=== PATIENT | male | born 1970 ===

== ENCOUNTER 2018-10-19 09:22 | Inpatient (IN) | payer MEDICAID, OTHER ==
--- NOTE | 2018-10-19 10:40 | ED PDOC ---
HPI: SOB/CHF/COPD Time Seen by Provider: 10/19/18 09:48 Chief Complaint (Nursing): Shortness Of Breath Chief Complaint (Provider): Shortness Of Breath History Per: Patient History/Exam Limitations: no limitations Additional Complaint(s): 48 y./o male presents to the ED complaining of unable to breathe through his nose and shortness of breath. Patient states he had shortness of breath for 5 years now and it is getting worse. He admits of never getting evaluated before and reports the tone of his voice has been changing for the last 5 years.. 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 Patient denies cough, fever, or any chest pain. [facility] #[id number] PMD: none provided Past Medical History Reviewed: Historical Data, Nursing Documentation, Vital Signs Vital Signs: Last Vital Signs Temp 98.2 F 10/19/18 09:34 Pulse 94 H 10/19/18 09:34 Resp 16 10/19/18 09:34 BP 113/74 10/19/18 09:34 Pulse Ox 99 10/19/18 09:34 Primary Care Provider: FAMILY PROVIDER,NO - Medical History PMH: No Chronic Diseases - Surgical History Surgical History: No Surg Hx - Family History Family History: States: Unknown Family Hx - Social History Current smoker - smoking cessation education provided: No Ex-Smoker (has not smoked in the last 12 months): Yes (Quit smoking 15 years ago) - Allergies Allergies/Adverse Reactions: Allergies Allergy/AdvReac Type Severity Reaction Status Date / Time No Known Allergies Allergy Verified 10/19/18 09:48 Review of Systems ROS Statement: Except As Marked, All Systems Reviewed And Found Negative Constitutional: Negative for: Fever Cardiovascular: Negative for: Chest Pain Respiratory: Positive for: Shortness of Breath. Negative for: Cough Physical Exam - Reviewed Nursing Documentation Reviewed: Yes Vital Signs Reviewed: Yes - Physical Exam Appears: Positive for: Well, Non-toxic, No Acute Distress Head Exam: Positive for: ATRAUMATIC, NORMAL INSPECTION, NORMOCEPHALIC Skin: Positive for: Normal Color, Warm, Dry Eye Exam: Positive for: EOMI, Normal appearance, PERRL ENT: Positive for: Normal ENT Inspection, Pharynx Is (Left posterior superficial blisters. Uvula midline.), Other (Horse voice. No drooling.). Negative for: Tonsillar Exudate, Tonsillar Swelling Neck: Positive for: Normal, Painless ROM, Supple Cardiovascular/Chest: Positive for: Regular Rate, Rhythm. Negative for: Murmur Respiratory: Positive for: Normal Breath Sounds. Negative for: Wheezing Gastrointestinal/Abdominal: Positive for: Normal Exam, Soft. Negative for: Tenderness Back: Positive for: Normal Inspection. Negative for: L CVA Tenderness, R CVA Tenderness Extremity: Positive for: Normal ROM Neurological/Psych: Positive for: Awake, Alert, Normal Tone, Oriented (x3). Ne gative for: Motor/Sensory Deficits - Laboratory Results Result Diagrams: 10/19/18 10:55 10/19/18 10:55 - ECG O2 Sat by Pulse Oximetry: 99 Medical Decision Making Medical Decision Making: Time:1014 Impression: Shortness of breath Plan: -CT -EKG -B-type -CMP -CBC -PTT -Prothrobime -Chest x-ray -Urinalysis Accession No. : [id number] Patient Name / ID : MAGALI PEPE / [id number] Exam Date : 10/19/2018 11:00:16 ( Approved ) Study Comment : Sex / Age : M / 48Y Creator : Raffaele Lamb MD Dictator : Raffaele Lamb MD Labor Relations Teacher : Fruit Rancher : Raffaele Lamb MD Approver2 : Report Date : 10/19/2018 12:26:54 My Comment : Date of service: 10/19/2018 PROCEDURE: CT NECK WITHOUT CONTRAST HISTORY: SOB, hoarse voice COMPARISON: None available. TECHNIQUE: CT of the neck without intravenous contrast. Coronal and sagittal reformats generated. Radiation dose: Total exam DLP = 260.39 mGy-cm. This CT exam was performed using one or more of the following dose reduction techniques: Automated exposure control, adjustment of the mA and/or kV according to patient size, and/or use of iterative reconstruction technique. FINDINGS: Please note that the examination is limited by the absence of intravenous contrast. NASOPHARYNX: Unremarkable. SUPRAHYOID NECK: Unremarkable INFRAHYOID NECK: Just inferior to the larynx there is asymmetric soft tissue thickening along the right side associated with some small bubbles of gas. This could represent mucou s secretion but the possibility of a neoplastic process must be considered. There is coarse sclerotic calcification along the right lateral aspect of this soft tissue thickening. Likely this reflects a chronic process. Evaluation with direct visualization is advised. The larynx itself is normal in appearance. Please note that there is additionally some sclerotic calcification for anteriorly in the supraglottic space. Uncertain significance. MASS: None. GLANDS: Parotid and submandibular glands unremarkable. Normal size thyroid gland, without nodule. LYMPH NODES: Normal. No lymphadenopathy. CERVICAL SPINE: No fracture or focal lesion. OTHER FINDINGS: None. IMPRESSION: Asymmetric soft tissue thickening along the right lateral wall of the infraglottic trachea associated with some sclerotic curvilinear calcification along the right lateral border of this soft tissue density. Direct visualization is advised for further evaluation. No other acute findings. Accession No. : [id number] Patient Name / ID : MAGALI PEPE / [id number] Exam Date : 10/19/2018 11:03:30 ( Approved ) Study Comment : Sex / Age : M / 48Y Creator : Arash Sanz MD Dictator : Arash Sanz MD Labor Relations Teacher : Fruit Rancher : Arash Sanz MD Approver2 : Report Date : 10/19/2018 12:58:18 My Comment : Date of service: 10/19/2018 PROCEDURE: CT Chest without contrast HISTORY: Dyspnea, shortness of breath COMPARISON: October 19, 2018. Two-view chest TECHNIQUE: Contiguous axial images were obtained through the chest without intravenous contrast enhancement. Sagittal and coronal reconstructions were performed. Radiation dose: Total exam DLP = 260.67 mGy-cm. This CT exam was performed using one or more of the following dose reduction techniques: Automated exposure control, adjustment of the mA and/or kV according to patient size, and/or use of iterative reconstruction technique. FINDINGS: LUNGS: Subsegmental infiltrate/atelectasis lateral segment right middle lobe. Mild parabronchial thickening. Likely lower airway disease/bronchitis. MEDIASTINUM: Unremarkable thoracic aorta. No aneurysm. Normal sized heart. Main pulmonary artery unremarkable. No vascular congestion. No lymphadenopathy. No aortic atherosclerotic calcification. PLEURA: No pleural fluid. No pneumothorax. BONES: No fracture. No destructive lesion. UPPER ABDOMEN: Grossly unremarkable. OTHER FINDINGS: None. IMPRESSION: Right middle lobe infiltrate/atelectasis. Diffuse and mild lower airway disease. Time: 1259 --Case discussed with DAYNA Lisa. Scribe Attestation: Documented by Em Segovia, acting as a scribe for Ania Bowie Provider Scribe Attestation: All medical record entries made by the Scribe were at my direction and personally dictated by me. I have reviewed the chart and agree that the record accurately reflects my personal performance of the history, physical exam, medical decision making, and the department course for this patient. I have also personally directed, reviewed, and agree with the discharge instructions and disposition. Disposition - Clinical Impression Clinical Impression: Neck mass - Disposition Disposition Time: 14:00 Condition: STABLE Forms: [employer] (Macedonian) - Pt Status Changed To: Hospital Disposition Of: Inpatient - Admit Certification Admit to Inpatient:: After my assessment, the patient will require hospitalization for at least two midnights. This is because of the severity of symptoms shown, intensity of services needed, and/or the medical risk in this patient being treated as an outpatient. - POA Present On Arrival: None
--- NOTE | 2018-10-19 10:53 | RAD ---
Date of service: 10/19/2018 HISTORY: SOB COMPARISON: No prior. TECHNIQUE: Chest PA and lateral views FINDINGS: LUNGS: No active pulmonary disease. PLEURA: No significant pleural effusion identified. No pneumothorax apparent. CARDIOVASCULAR: No aortic atherosclerotic calcification present. Normal cardiac size. No pulmonary vascular congestion. OSSEOUS STRUCTURES: No significant abnormalities. VISUALIZED UPPER ABDOMEN: Normal. OTHER FINDINGS: None. IMPRESSION: No active disease.
[2018-10-19 11:13] LABS: BASO % 0.5 % (0.0-2.0); EOS % 0.4 % (0.0-4.0); HEMOGLOBIN 13.9 g/dL (12.0-18.0); LYMPH # 1.4 K/uL (1.0-4.3); LYMPH % 24.1 % (20.0-40.0); MEAN CELL VOLUME 83.9 fl (80.0-94.0); MEAN CORPUSCULAR HEMOGLOBIN 28.2 pg (27.0-31.0); MEAN CORPUSCULAR HGB CONC 33.6 g/dL (33.0-37.0); MONO # 0.5 K/uL (0.0-0.8); MONO % 8.6 % (0.0-10.0); NEUT # 3.8 K/uL (1.8-7.0); NEUT % 66.4 % (50.0-75.0); NRBC % 0.2 % (0.0-0.0); RBC 4.92 Mil/uL (4.40-5.90); RED CELL DISTRIBUTION WIDTH 13.9 % (11.5-14.5); WHITE BLOOD COUNT 5.8 K/uL (4.8-10.8)
[2018-10-19 11:23] LABS: ALB/GLOB RATIO 1.4 (1.0-2.1); ALBUMIN 4.3 g/dL (3.5-5.0); ALT/SGPT 33 U/L (21-72); AST/SGOT 27 U/L (17-59); BLOOD UREA NITROGEN 12 mg/dl (9-20); CALCIUM 8.4 mg/dL (8.4-10.2); GFR NON-AFRICAN AMERICAN > 60
[2018-10-19 11:32] LABS: B-TYPE NATRIURETIC PEPTIDE 30.1 pg/ml (0-450)
[2018-10-19 11:34] LABS: INR 1.1; PROTHROMBIN TIME 12.6 Seconds (9.8-13.1)
[2018-10-19 11:37] LABS: PARTIAL THROMBOPLASTIN TIME 33.3 Seconds (25.6-37.1)
--- NOTE | 2018-10-19 11:49 | CARD ---
APPROVED REPORT Date of service: 10/19/2018 EKG Measurement Heart [id number] <Conclusion> Normal sinus rhythm Normal ECG
--- NOTE | 2018-10-19 12:30 | CT ---
Date of service: 10/19/2018 PROCEDURE: CT NECK WITHOUT CONTRAST HISTORY: SOB, hoarse voice COMPARISON: None available. TECHNIQUE: CT of the neck without intravenous contrast. Coronal and sagittal reformats generated. Radiation dose: Total exam DLP = 260.39 mGy-cm. This CT exam was performed using one or more of the following dose reduction techniques: Automated exposure control, adjustment of the mA and/or kV according to patient size, and/or use of iterative reconstruction technique. FINDINGS: Please note that the examination is limited by the absence of intravenous contrast. NASOPHARYNX: Unremarkable. SUPRAHYOID NECK: Unremarkable INFRAHYOID NECK: Just inferior to the larynx there is asymmetric soft tissue thickening along the right side associated with some small bubbles of gas. This could represent mucous secretion but the possibility of a neoplastic process must be considered. There is coarse sclerotic calcification along the right lateral aspect of this soft tissue thickening. Likely this reflects a chronic process. Evaluation with direct visualization is advised. The larynx itself is normal in appearance. Please note that there is additionally some sclerotic calcification for anteriorly in the supraglottic space. Uncertain significance. MASS: None. GLANDS: Parotid and submandibular glands unremarkable. Normal size thyroid gland, without nodule. LYMPH NODES: Normal. No lymphadenopathy. CERVICAL SPINE: No fracture or focal lesion. OTHER FINDINGS: None. IMPRESSION: Asymmetric soft tissue thickening along the right lateral wall of the infraglottic trachea associated with some sclerotic curvilinear calcification along the right lateral border of this soft tissue density. Direct visualization is advised for further evaluation. No other acute findings.
--- NOTE | 2018-10-19 13:01 | CT ---
Date of service: 10/19/2018 PROCEDURE: CT Chest without contrast HISTORY: Dyspnea, shortness of breath COMPARISON: October 19, 2018. Two-view chest TECHNIQUE: Contiguous axial images were obtained through the chest without intravenous contrast enhancement. Sagittal and coronal reconstructions were performed. Radiation dose: Total exam DLP = 260.67 mGy-cm. This CT exam was performed using one or more of the following dose reduction techniques: Automated exposure control, adjustment of the mA and/or kV according to patient size, and/or use of iterative reconstruction technique. FINDINGS: LUNGS: Subsegmental infiltrate/atelectasis lateral segment right middle lobe. Mild parabronchial thickening. Likely lower airway disease/bronchitis. MEDIASTINUM: Unremarkable thoracic aorta. No aneurysm. Normal sized heart. Main pulmonary artery unremarkable. No vascular congestion. No lymphadenopathy. No aortic atherosclerotic calcification. PLEURA: No pleural fluid. No pneumothorax. BONES: No fracture. No destructive lesion. UPPER ABDOMEN: Grossly unremarkable. OTHER FINDINGS: None. IMPRESSION: Right middle lobe infiltrate/atelectasis. Diffuse and mild lower airway disease.
[2018-10-19 13:07] LABS: URINE BILIRUBIN NEGATIVE (NEGATIVE); URINE BLOOD NEGATIVE (NEGATIVE); URINE CLARITY CLEAR (Clear); URINE COLOR YELLOW (YELLOW); URINE GLUCOSE (UA) NEG (NEGATIVE); URINE LEUKOCYTE ESTERASE NEG Leu/uL (Negative); URINE PROTEIN NEGATIVE (NEGATIVE); URINE UROBILINOGEN 0.2-1.0 mg/dL (0.2-1.0)
--- NOTE | 2018-10-19 17:36 | CP.PCM.HP ---
<Ravindra Gao - Last Filed: 10/19/18 18:13> History of Present Illness - History of Present Illness History of Present Illness: 48 yo with no pmh present to ED due to Chronic SOB, with hoarseness that started 4 years ago, but for the past 2 mo he have been complaining of increase difficu lty breathing that made him stop working. Patient also state that he have some pain while swallowing. Otherwise patient have no complains. Patient state that he was concerned about his breathing and wanted to be checked. He denies any chest pain, abdominal pain, diarrhea, constipation, dysuria or polyuria. 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 Allergy none PMH none medication: none PSH None PFH none Social used to smoke 1-2 cig, but stopped smoking for past 15 years. denies drug. drink occasionally Ed course Vitals WNL Lab WNL Diagnostic imaging Asymmetric soft tissue thickening along the right lateral wall of the infraglottic trachea associated with some sclerotic curvilinear calcification along the right lateral border of this soft tissue density. Direct visualization is advised for further evaluation. No other acute findings. Asymmetric soft tissue thickening along the right lateral wall of the infraglottic trachea associated with some sclerotic curvilinear calcification along the right lateral border of this soft tissue density. Direct visualization is advised for further evaluation. No other acute findings. CT chest Right middle lobe infiltrate/atelectasis. Diffuse and mild lower airway disease. Patient admitted for SOB and Abnormal Ct finding Present on Admission - Present on Admission Any Indicators Present on Admission: No Review of Systems - Review of Systems All systems: reviewed and no additional remarkable complaints except Past Patient History - Past Social History Smoking Status: Former Smoker - PSYCHIATRIC Hx Substance Use: No - SURGICAL HISTORY Hx Surgeries: No Meds Allergies/Adverse Reactions: Allergies Allergy/AdvReac Type Severity Reaction Status Date / Time No Known Allergies Allergy Verified 10/19/18 09:48 Physical Exam - Constitutional Appears: Well, Non-toxic, Toxic, No Acute Distress - Head Exam Head Exam: ATRAUMATIC, NORMAL INSPECTION, NORMOCEPHALIC - Eye Exam Eye Exam: EOMI, Normal appearance, PERRL Pupil Exam: NORMAL ACCOMODATION, PERRL - ENT Exam ENT Exam: Mucous Membranes Moist, Normal Exam Additional comments: 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) - Neck Exam Neck exam: Positive for: Normal Inspection Additional comments: Mass was palpated on neck possible due to chronic scarring on epiglottis - Respiratory Exam Respiratory Exam: Clear to Auscultation Bilateral, NORMAL BREATHING PATTERN - GI/Abdominal Exam GI & Abdominal Exam: Normal Bowel Sounds, Soft - Extremities Exam Extremities exam: Positive for: normal inspection - Back Exam Back exam: NORMAL INSPECTION - Neurological Exam Neurological exam: Alert, CN II-XII Intact, Normal Gait, Oriented x3, Reflexes N ormal - Psychiatric Exam Psychiatric exam: Normal Affect, Normal Mood - Skin Skin Exam: Dry, Intact, Normal Color, Warm Results - Vital Signs Recent Vital Signs: Last Vital Signs Temp 98.2 F 10/19/18 13:15 Pulse 76 10/19/18 13:15 Resp 18 10/19/18 13:15 BP 143/81 10/19/18 13:15 Pulse Ox 99 10/19/18 14:29 - Labs Result Diagrams: 10/19/18 10:55 10/19/18 10:55 Labs: Laboratory Results - last 24 hr 10/19/18 10/19/18 10/19/18 10:55 10:55 10:55 WBC 5.8 RBC 4.92 Hgb 13.9 Hct 41.3 MCV 83.9 MCH 28.2 MCHC 33.6 RDW 13.9 Plt Count 371 MPV 8.0 Neut % (Auto) 66.4 Lymph % (Auto) 24.1 Davie % (Auto) 8.6 Eos % (Auto) 0.4 Baso % (Auto) 0.5 Neut # (Auto) 3.8 Lymph # (Auto) 1.4 Davie # (Auto) 0.5 Eos # (Auto) 0.0 Baso # (Auto) 0.0 PT 12.6 INR 1.1 APTT 33.3 Sodium 137 Potassium 4.1 Chloride 102 Carbon Dioxide 25 Anion Gap 14 BUN 12 Creatinine 0.7 L Est GFR ( Amer) > 60 Est GFR (Non-Af Amer) > 60 Random Glucose 104 Calcium 8.4 Total Bilirubin 0.4 AST 27 ALT 33 Alkaline Phosphatase 149 H NT-Pro-B Natriuret Pep 30.1 Total Protein 7.4 Albumin 4.3 Globulin 3.1 Albumin/Globulin Ratio 1.4 Urine Color Urine Clarity Urine pH Ur Specific Jackson Urine Protein Urine Glucose (UA) Urine Ketones Urine Blood Urine Nitrate Urine Bilirubin Urine Urobilinogen Ur Leukocyte Esterase Urine RBC (Auto) Urine Microscopic WBC 10/19/18 12:54 WBC RBC Hgb Hct MCV MCH MCHC RDW Plt Count MPV Neut % (Auto) Lymph % (Auto) Davie % (Auto) Eos % (Auto) Baso % (Auto) Neut # (Auto) Lymph # (Auto) Davie # (Auto) Eos # (Auto) Baso # (Auto) PT INR APTT Sodium Potassium Chloride Carbon Dioxide Anion Gap BUN Creatinine Est GFR ( Amer) Est GFR (Non-Af Amer) Random Glucose Calcium Total Bilirubin AST ALT Alkaline Phosphatase NT-Pro-B Natriuret Pep Total Protein Albumin Globulin Albumin/Globulin Ratio Urine Color Yellow Urine Clarity Clear Urine pH 6.0 Ur Specific Jackson 1.015 Urine Protein Negative Urine Glucose (UA) Neg Urine Ketones Negative Urine Blood Negative Urine Nitrate Negative Urine Bilirubin Negative Urine Urobilinogen 0.2-1.0 Ur Leukocyte Esterase Neg Urine RBC (Auto) 3 Urine Microscopic WBC < 1 Assessment & Plan - Assessment and Plan (Free Text) Assessment: 48 yo male with no pmh present with Chronic SOB and hoarseness with abnormal finding in CT scan of neck. Evaluated by ENT and will admit for Tracheotomy. CT neck Asymmetric soft tissue thickening along the right lateral wall of the infraglottic trachea associated with some sclerotic curvilinear calcification along the right lateral border of this soft tissue density. Direct visualization is advised for further evaluation. No other acute findings. Asymmetric soft tissue thickening along the right lateral wall of the infraglottic trachea associated with some sclerotic curvilinear calcification along the right lateral border of this soft tissue density. Direct visualization is advised for further evaluation. No other acute findings. CT chest Right middle lobe infiltrate/atelectasis. 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 Patient will go to OR today for tracheotomy Patient is medically stable for surgery patient is low risk for moderate risk procedure Diet NPO for now DVT Hold lovenox until tomorrow . <Klever Grey D - Last Filed: 10/19/18 18:30> Results - Vital Signs Recent Vital Signs: Last Vital Signs Temp 98.2 F 10/19/18 13:15 Pulse 76 10/19/18 13:15 Resp 18 10/19/18 13:15 BP 143/81 10/19/18 13:15 Pulse Ox 99 10/19/18 14:29 - Labs Result Diagrams: 10/19/18 10:55 10/19/18 10:55 Labs: Laboratory Results - last 24 hr 10/19/18 10/19/18 10/19/18 10:55 10:55 10:55 WBC 5.8 RBC 4.92 Hgb 13.9 Hct 41.3 MCV 83.9 MCH 28.2 MCHC 33.6 RDW 13.9 Plt Count 371 MPV 8.0 Neut % (Auto) 66.4 Lymph % (Auto) 24.1 Davie % (Auto) 8.6 Eos % (Auto) 0.4 Baso % (Auto) 0.5 Neut # (Auto) 3.8 Lymph # (Auto) 1.4 Davie # (Auto) 0.5 Eos # (Auto) 0.0 Baso # (Auto) 0.0 PT 12.6 INR 1.1 APTT 33.3 Sodium 137 Potassium 4.1 Chloride 102 Carbon Dioxide 25 Anion Gap 14 BUN 12 Creatinine 0.7 L Est GFR ( Amer) > 60 Est GFR (Non-Af Amer) > 60 Random Glucose 104 Calcium 8.4 Total Bilirubin 0.4 AST 27 ALT 33 Alkaline Phosphatase 149 H NT-Pro-B Natriuret Pep 30.1 Total Protein 7.4 Albumin 4.3 Globulin 3.1 Albumin/Globulin Ratio 1.4 Urine Color Urine Clarity Urine pH Ur Specific Jackson Urine Protein Urine Glucose (UA) Urine Ketones Urine Blood Urine Nitrate Urine Bilirubin Urine Urobilinogen Ur Leukocyte Esterase Urine RBC (Auto) Urine Microscopic WBC 10/19/18 12:54 WBC RBC Hgb Hct MCV MCH MCHC RDW Plt Count MPV Neut % (Auto) Lymph % (Auto) Davie % (Auto) Eos % (Auto) Baso % (Auto) Neut # (Auto) Lymph # (Auto) Davie # (Auto) Eos # (Auto) Baso # (Auto) PT INR APTT Sodium Potassium Chloride Carbon Dioxide Anion Gap BUN Creatinine Est GFR ( Amer) Est GFR (Non-Af Amer) Random Glucose Calcium Total Bilirubin AST ALT Alkaline Phosphatase NT-Pro-B Natriuret Pep Total Protein Albumin Globulin Albumin/Globulin Ratio Urine Color Yellow Urine Clarity Clear Urine pH 6.0 Ur Specific Jackson 1.015 Urine Protein Negative Urine Glucose (UA) Neg Urine Ketones Negative Urine Blood Negative Urine Nitrate Negative Urine Bilirubin Negative Urine Urobilinogen 0.2-1.0 Ur Leukocyte Esterase Neg Urine RBC (Auto) 3 Urine Microscopic WBC < 1 Attending/Attestation - Attestation I have personally seen and examined this patient.: Yes I have fully participated in the care of the patient.: Yes I have reviewed all pertinent clinical information: Yes Notes (Text): 10/19/18 18:30 Patient seen and examined with resident. Case discussed and agreed with assessment and plan of management
[2018-10-19] MEDS ORDERED: Midazolam 2 MG/2 ML VIAL ONE ×2 (17:59→19:17)
[2018-10-19] MEDS ORDERED: Lidocaine 1% w Epi 1:100,000 Inj ONE (19:02)
[2018-10-19] MEDS ORDERED: Lactated Ringer's 1,000 ML IV ONE (19:17)
[2018-10-19] MEDS ORDERED: Ketamine 50 mg/ml Inj (10 ml) ONE (19:18)
[2018-10-19] MEDS ORDERED: Lidocaine 4% (Laryng-O-Jet) Kit MM ONE (19:44)
--- NOTE | 2018-10-19 19:55 | PCM.SURG1 ---
Surgeon's Initial Post Op Note - Surgeon's Notes Surgeon: Dr. Lainez Manager Country: Dr. Degroot Type of Anesthesia: Local Anesthesia Administered By: Dr. 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
[2018-10-19] MEDS: Lactated Ringer's 1,000 ML IV SCH (20:00)
[2018-10-19] MEDS ORDERED: ceFAZolin 1 GM in Sodium Chloride 0.9% 100 ML IVPB SCH (21:00)
--- NOTE | 2018-10-19 22:40 | CP.PCM.CON ---
History of Present Illness - History of Present Illness History of Present Illness: Attending: Dr Grey PMD: None Reason for Consult: Critical care management Chief Complaint: Shortness of Breath The patient was seen and examined in the ICU post surgery, Tracheostomy. HPI: The hx is obtained from review of the radiological and medical records as the patient is with a tracheostomy. 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 No fever,cough, chest pain nor palpitation. CT Neck without contrast IMPRESSION: Asymmetric soft tissue thickening along the right lateral wall of the infraglottic trachea associated with some sclerotic curvilinear calcification along the right lateral border of this soft tissue density. Direct visualization is advised for further evaluation. No other acute findings. PMH: Denies PSH: No surgical hx SH: Former Smoking 15 years; No ETOH; No illegal drug use. FH: No known family hx Allergies: NKDA Medication: Denies medication use Review of Systems - Constitutional Constitutional: absent: Anorexia, Chills, Frequent Falls, Headache - EENT Eyes: absent: Blurred Vision, Diplopia, Floaters, Requires Corrective Lenses Ears: absent: Decreased Hearing, Ear Discharge, Tinnitus Nose/Mouth/Throat: Change in Voice. absent: Epistaxis, Nasal Congestion, Nasal Discharge - Cardiovascular Cardiovascular: Dyspnea. absent: Chest Pain, Claudication - Respiratory Respiratory: Dyspnea. absent: Cough, Hemoptysis, Wheezing - Gastrointestinal Gastrointestinal: absent: Abdominal Pain, Constipation, Diarrhea, Nausea, Vomiting - Genitourinary Genitourinary: absent: Dysuria, Flank Pain, Urinary Frequency - Musculoskeletal Musculoskeletal: absent: Arthralgias, Muscle Weakness - Integumentary Integumentary: absent: Rash, Skin Pain, Skin Ulcer, Sores, Swelling - Neurological Neurological: absent: Dizziness, Headaches, Weakness - Psychiatric Psychiatric: absent: Anxiety, Depression, Panic Attacks - Endocrine Endocrine: absent: Palpitations, Polydipsia, Polyphagia, Polyuria - Hematologic/Lymphatic Hematologic: absent: Easy Bleeding, Easy Bruising Past Patient History - Past Medical History & Family History Past Medical History?: No - Past Social History Smoking Status: Former Smoker Chewing Tobacco Use: No Cigar Use: No Alcohol: None Drugs: Denies, Inhalants - CARDIAC Hx Cardiac Disorders: No - PULMONARY Hx Respiratory Disorders: No - NEUROLOGICAL Hx Neurological Disorder: No - HEENT Hx HEENT Problems: No - RENAL Hx Chronic Kidney Disease: No - ENDOCRINE/METABOLIC Hx Endocrine Disorders: No - HEMATOLOGICAL/ONCOLOGICAL Hx Blood Disorders: No - INTEGUMENTARY Hx Dermatological Problems: No - MUSCULOSKELETAL/RHEUMATOLOGICAL Hx Musculoskeletal Disorders: No - GASTROINTESTINAL Hx Gastrointestinal Disorders: No - GENITOURINARY/GYNECOLOGICAL Hx Genitourinary Disorders: No - PSYCHIATRIC Hx Emotional Abuse: No Hx Physical Abuse: No Hx Substance Use: No - SURGICAL HISTORY Hx Surgeries: No - ANESTHESIA Hx Anesthesia: No Meds Allergies/Adverse Reactions: Allergies Allergy/AdvReac Type Severity Reaction Status Date / Time No Known Allergies Allergy Verified 10/19/18 09:48 - Medications Medications: Current Medications Enoxaparin Sodium (Lovenox) 40 mg SC DAILY ANITA; Protocol Lactated Ringer's (Lactated Ringer's) 1,000 mls @ 100 mls/hr IV .Q10H ANITA Cefazolin Sodium 1 gm/ Sodium (Chloride) 100 mls @ 100 mls/hr IVPB Q12 ANITA; Protocol Last Admin: 10/19/18 22:18 Dose: 100 mls/hr Physical Exam - Constitutional Appears: No Acute Distress - Head Exam Head Exam: ATRAUMATIC, NORMAL INSPECTION, NORMOCEPHALIC - Eye Exam Eye Exam: EOMI, Normal appearance Pupil Exam: NORMAL ACCOMODATION, PERRL - ENT Exam ENT Exam: Mucous Membranes Moist Additional comments: Trach tube in place with trach collar clean and dry. No sign of bleeding. - Neck Exam Additional comments: Trach tube with trach collar in place. - Respiratory Exam Respiratory Exam: absent: Rales, Rhonchi, Wheezes, Respiratory Distress - Cardiovascular Exam Cardiovascular Exam: REGULAR RHYTHM, RRR, +S1, +S2. absent: JVD - GI/Abdominal Exam GI & Abdominal Exam: Normal Bowel Sounds, Soft. absent: Mass, Organomegaly, Tenderness - Rectal Exam Rectal Exam: Deferred - Extremities Exam Extremities exam: Positive for: full ROM, normal inspection. Negative for: calf tenderness, joint swelling, pedal edema, tenderness - Back Exam Back exam: NORMAL INSPECTION. absent: CVA tenderness (L), CVA tenderness (R) - Neurological Exam Neurological exam: Alert, CN II-XII Intact, Reflexes Normal - Psychiatric Exam Psychiatric exam: Flat Affect - Skin Skin Exam: Dry, Intact, Normal Color, Warm Results - Vital Signs Recent Vital Signs: Last Vital Signs Temp 98.7 F 10/19/18 21:20 Pulse 72 10/19/18 21:20 Resp 18 10/19/18 21:20 BP 124/86 10/19/18 21:20 Pulse Ox 100 10/19/18 21:20 - Labs Result Diagrams: 10/19/18 10:55 10/19/18 10:55 Labs: Laboratory Results - last 24 hr 10/19/18 10/19/18 10/19/18 10:55 10:55 10:55 WBC 5.8 RBC 4.92 Hgb 13.9 Hct 41.3 MCV 83.9 MCH 28.2 MCHC 33.6 RDW 13.9 Plt Count 371 MPV 8.0 Neut % (Auto) 66.4 Lymph % (Auto) 24.1 Ramsey % (Auto) 8.6 Eos % (Auto) 0.4 Baso % (Auto) 0.5 Neut # (Auto) 3.8 Lymph # (Auto) 1.4 Ramsey # (Auto) 0.5 Eos # (Auto) 0.0 Baso # (Auto) 0.0 PT 12.6 INR 1.1 APTT 33.3 Sodium 137 Potassium 4.1 Chloride 102 Carbon Dioxide 25 Anion Gap 14 BUN 12 Creatinine 0.7 L Est GFR ( Amer) > 60 Est GFR (Non-Af Amer) > 60 Random Glucose 104 Calcium 8.4 Total Bilirubin 0.4 AST 27 ALT 33 Alkaline Phosphatase 149 H NT-Pro-B Natriuret Pep 30.1 Total Protein 7.4 Albumin 4.3 Globulin 3.1 Albumin/Globulin Ratio 1.4 Urine Color Urine Clarity Urine pH Ur Specific Summit Urine Protein Urine Glucose (UA) Urine Ketones Urine Blood Urine Nitrate Urine Bilirubin Urine Urobilinogen Ur Leukocyte Esterase Urine RBC (Auto) Urine Microscopic WBC 10/19/18 12:54 WBC RBC Hgb Hct MCV MCH MCHC RDW Plt Count MPV Neut % (Auto) Lymph % (Auto) Ramsey % (Auto) Eos % (Auto) Baso % (Auto) Neut # (Auto) Lymph # (Auto) Ramsey # (Auto) Eos # (Auto) Baso # (Auto) PT INR APTT Sodium Potassium Chloride Carbon Dioxide Anion Gap BUN Creatinine Est GFR ( Amer) Est GFR (Non-Af Amer) Random Glucose Calcium Total Bilirubin AST ALT Alkaline Phosphatase NT-Pro-B Natriuret Pep Total Protein Albumin Globulin Albumin/Globulin Ratio Urine Color Yellow Urine Clarity Clear Urine pH 6.0 Ur Specific Summit 1.015 Urine Protein Negative Urine Glucose (UA) Neg Urine Ketones Negative Urine Blood Negative Urine Nitrate Negative Urine Bilirubin Negative Urine Urobilinogen 0.2-1.0 Ur Leukocyte Esterase Neg Urine RBC (Auto) 3 Urine Microscopic WBC < 1 - Imaging and Cardiology CT Chest without contrast Status: Image reviewed by me Additional comment: 10/19/2018 PROCEDURE: CT Chest without contrast FINDINGS: LUNGS: Subsegmental infiltrate/atelectasis lateral segment right middle lobe. Mild parabronchial thickening. Likely lower airway disease/bronchitis. MEDIASTINUM: Unremarkable thoracic aorta. No aneurysm. Normal sized heart. Main pulmonary artery unremarkable. No vascular congestion. No lymphadenopathy. No aortic atherosclerotic calcification. PLEURA: No pleural fluid. No pneumothorax. BONES: No fracture. No destructive lesion. UPPER ABDOMEN: Grossly unremarkable. OTHER FINDINGS: None. IMPRESSION: Right middle lobe infiltrate/atelectasis. Diffuse and mild lower airway disease. CT neck without contrast Status: Image reviewed by me, Report reviewed by me Additional comment: PROCEDURE: CT NECK WITHOUT CONTRAST FINDINGS: Please note that the examination is limited by the absence of intravenous contrast. NASOPHARYNX: Unremarkable. SUPRAHYOID NECK: Unremarkable INFRAHYOID NECK: Just inferior to the larynx there is asymmetric soft tissue thickening along the right side associated with some small bubbles of gas. This could represent mucous secretion but the possibility of a neoplastic process must be considered. There is coarse sclerotic calcification along the right lateral aspect of this soft tissue thickening. Likely this reflects a chronic process. Evaluation with direct visualization is advised. The larynx itself is normal in appearance. Please note that there is additionally some sclerotic calcification for anteriorly in the supraglottic space. Uncertain significance. MASS: None. GLANDS: Parotid and submandibular glands unremarkable. Normal size thyroid gland, without nodule. LYMPH NODES: Normal. No lymphadenopathy. CERVICAL SPINE: No fracture or focal lesion. OTHER FINDINGS: None. IMPRESSION: Asymmetric soft tissue thickening along the right lateral wall of the infraglottic trachea associated with some sclerotic curvilinear calcification along the right lateral border of this soft tissue density. Direct visualization is advised for further evaluation. No other acute findings. 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 CT Neck without contrast IMPRESSION: Asymmetric soft tissue thickening along the right lateral wall of the infra glottic trachea associated with some sclerotic curvilinear calcification along the right lateral border of this soft tissue density. Direct visualization is advised for further evaluation. No other acute findings. #.SOB with Dysphonia. ENT, Dr Lainez consulted and diagnosed infraepiglottic mass causing airway obstruction. The patient was taken to the OR for an open Tracheostomy. - Tracheostomy POD#0 - O2 via trach collar 40% FiO2 - IV Fluids - Pain management with Morphine - Empiric Antibiotic - Observe for respiratory distress #. DVT prophylaxis with SCD and Lovenox Tyler Alfaro MD - Date & Time Date: 10/19/18 Time: 22:40
--- NOTE | 2018-10-19 22:52 | CP.PCM.PCO ---
Assessment/Plan - Assessment and Plan (Free Text) Assessment: POST-OP NOTE 48 YO male admitted for infraepiglottic mass, airway obstruction. ENT was consulted, patient was taken to the OR by Dr. Ferguson for open tracheostomy Patient is seen and evaluated in the ICU post-OP Doing well, awake alert and speaking via hand gestures. Feeling well, endorsing mild pain O: HR 80, RR 19, O2 100, and BP 142/86 VS stable on monitor, Trach is noted, area is clean, dry and intact. H: S1S2 no additional heart sounds R: clear breath sounds b/l Abd: Soft, NT, BS+ Ext: moving all ext, NT no edema Neuro: awake and alert A/P: Infraepiglottic mass, airway obstruction. -POD0 for open tracheostomy -follow up ENT recs -pain management
[2018-10-19] MEDS ORDERED: Morphine 4 MG/ML VIAL IVP PRN (23:59)
--- NOTE | 2018-10-20 06:23 | CP.PCM.PN ---
<Ravindra Gao - Last Filed: 10/20/18 11:30> Subjective - Date & Time of Evaluation Date of Evaluation: 10/20/18 Time of Evaluation: 07:00 - Subjective Subjective: Patient is S/P tracheotomy Day 1, done By dr Ferguson in OR. Patient is seen and examined at bedside. Patient breathing is improved, pain controlled with morphine. Patient is hypodermically stable. Patient have no complains for today. Objective - Vital Signs/Intake and Output Vital Signs (last 24 hours): Temp Pulse Resp BP Pulse Ox 98.1 F 62 12 101/68 94 L 10/20/18 04:00 10/20/18 04:00 10/20/18 04:00 10/20/18 04:00 10/20/18 04:00 Intake and Output: 10/19/18 10/20/18 18:59 06:59 Intake Total 800 Output Total 400 Balance 400 - Medications Medications: Current Medications Enoxaparin Sodium (Lovenox) 40 mg SC DAILY ANITA; Protocol Lactated Ringer's (Lactated Ringer's) 1,000 mls @ 100 mls/hr IV .Q10H ANITA Last Admin: 10/19/18 20:00 Dose: Not Given Cefazolin Sodium 1 gm/ Sodium (Chloride) 100 mls @ 100 mls/hr IVPB Q12 ANITA; Protocol Last Admin: 10/19/18 22:18 Dose: 100 mls/hr Morphine Sulfate (Morphine) 4 mg IVP Q6 PRN PRN Reason: Pain, severe (8-10) Last Admin: 10/20/18 00:07 Dose: 4 mg Morphine Sulfate (Morphine) 2 mg IVP Q6 PRN PRN Reason: Pain, moderate (4-7) - Labs Labs: 10/19/18 10:55 10/19/18 10:55 PT 12.6 Seconds (9.8-13.1) 10/19/18 10:55 INR 1.1 10/19/18 10:55 APTT 33.3 Seconds (25.6-37.1) 10/19/18 10:55 - Constitutional Appears: Well, Non-toxic, No Acute Distress - Head Exam Head Exam: ATRAUMATIC, NORMAL INSPECTION, NORMOCEPHALIC - Eye Exam Eye Exam: EOMI, Normal appearance, PERRL Pupil Exam: NORMAL ACCOMODATION, PERRL - ENT Exam ENT Exam: Mucous Membranes Moist, Normal Exam - Neck Exam Additional comments: Trach noted, patent - Respiratory Exam Respiratory Exam: Clear to Ausculation Bilateral, NORMAL BREATHING PATTERN - Cardiovascular Exam Cardiovascular Exam: REGULAR RHYTHM, +S1, +S2 - GI/Abdominal Exam GI & Abdominal Exam: Soft, Normal Bowel Sounds - Extremities Exam Extremities Exam: Full ROM, Normal Capillary Refill - Neurological Exam Neurological Exam: Alert, Awake, Oriented x3 - Psychiatric Exam Psychiatric exam: Normal Affect, Normal Mood - Skin Skin Exam: Dry, Intact, Normal Color, Warm Assessment and Plan - Assessment and Plan (Free Text) Assessment: 48 yo male with no pmh present with Chronic SOB and hoarseness with abnormal finding in CT scan of neck. Evaluated by ENT and will admit for Tracheotomy. S/P day 1. IMPRESSION: CT neck Asymmetric soft tissue thickening along the right lateral wall of the infraglottic trachea associated with some sclerotic curvilinear calcification along the right lateral border of this soft tissue density. Direct visualization is advised for further evaluation. No other acute findings. Asymmetric soft tissue thickening along the right lateral wall of the infraglottic trachea associated with some sclerotic curvilinear calcification along the right lateral border of this soft tissue density. Direct visualization is advised for further evaluation. No other acute findings. CT chest Right middle lobe infiltrate/atelectasis. 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 S/P tracheostomy Day 1 - Tracheostomy POD#1 in ICU - O2 via trach collar 40% FiO2 - IV Fluids - Continue morphine for pain - S/P cefazolin - Observe for respiratory distress -Trach patent, breathing improved -F/U MRSA naris culture -Follow surgery recommendation. Diet F/U Swallow test recommendation DVT Continue lovenox <Susie Andrade - Last Filed: 10/20/18 16:44> Objective - Vital Signs/Intake and Output Vital Signs (last 24 hours): Temp Pulse Resp BP Pulse Ox 98.5 F 82 20 110/70 100 10/20/18 16:00 10/20/18 16:00 10/20/18 16:00 10/20/18 16:00 10/20/18 16:00 Intake and Output: 10/20/18 10/20/18 06:59 18:59 Intake Total 800 1300 Output Total 400 400 Balance 400 900 - Medications Medications: Current Medications Enoxaparin Sodium (Lovenox) 40 mg SC DAILY ANITA; Protocol Last Admin: 10/20/18 12:17 Dose: 40 mg Lactated Ringer's (Lactated Ringer's) 1,000 mls @ 100 mls/hr IV .Q10H ANITA Last Admin: 10/20/18 16:30 Dose: 100 mls/hr Morphine Sulfate (Morphine) 4 mg IVP Q6 PRN PRN Reason: Pain, severe (8-10) Last Admin: 10/20/18 00:07 Dose: 4 mg Morphine Sulfate (Morphine) 2 mg IVP Q6 PRN PRN Reason: Pain, moderate (4-7) Last Admin: 10/20/18 08:48 Dose: 2 mg - Labs Labs: 10/20/18 07:25 10/20/18 07:25 PT 12.6 Seconds (9.8-13.1) 10/19/18 10:55 INR 1.1 10/19/18 10:55 APTT 33.3 Seconds (25.6-37.1) 10/19/18 10:55 Attending/Attestation - Attestation I have personally seen and examined this patient.: Yes I have fully participated in the care of the patient.: Yes I have reviewed all pertinent clinical information, including history, physical exam and plan: Yes Notes (Text): Airway Obstruction due to Infraglottic Mass s/p Flex Laryngoscopy and Tracheostomy - Trach in place with Trach Collar - Scarring of the supraglottis noted on Laryngoscopy - will check with Dr Lainez if Biopsy was done - received IV Cefazolin x 3 doses - NPO for now - IVF hydration -Pain mgt
[2018-10-20] MEDS: Lactated Ringer's 1,000 ML IV SCH ×2 (06:32→16:30)
[2018-10-20 07:41] LABS: MEAN CELL VOLUME 84.2 fl (80.0-94.0); MEAN CORPUSCULAR HEMOGLOBIN 27.8 pg (27.0-31.0); RBC 5.04 Mil/uL (4.40-5.90); RED CELL DISTRIBUTION WIDTH 13.6 % (11.5-14.5); WHITE BLOOD COUNT 11.2 K/uL (4.8-10.8)
--- NOTE | 2018-10-20 07:48 | CP.CCUPN ---
CCU Subjective - Physician Review Subjective (Free Text): 10/20/18 11:48 The patient was Seen/interviewed and examined by me at the bedside during ICU round, Medical records reviewed and Management issues were discussed and formulated with the house staff. Events reviewed Mr Washburn is a 48 years old male with no chronic medical condition who presented to the emergency room yesterday with worsening shortness of breath, patient stated that he had trouble breathing for the past 5 years and explained gradually getting worse. 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 and does not recall other occupational exposure CAT scan of the neck showed soft tissue thickening along the right lateral wall of infraglottic trachea associated with some sclerotic calcification along the right lateral border of that soft tissue CAT scan of the chest showed right middle lobe infiltrate versus atelectasis and mild/diffuse lower airway disease Patient underwent direct visualization with laryngoscopy by ENT and eventually he had urgent tracheostomy with Biopsy done yesterday This morning the patient is doing well alert awake oriented x3 Afebrile Adequate saturation on trach collar Denies chest pain shortness of breath Pain well controlled Hemodynamically stable and the plan is to transfer to the telemetry CCU Objective - Vital Signs / Intake & Output Vital Signs (Last 4 hours): Vital Signs Temp Pulse Resp BP Pulse Ox 10/20/18 07:29 99.1 F 89 15 121/72 100 10/20/18 04:00 98.1 F 62 12 101/68 94 L Intake and Output (Last 8hrs): Intake & Output 10/19/18 10/20/18 10/20/18 22:59 06:59 14:59 Intake Total 250 550 Output Total 400 Balance -150 550 Weight 116 lb Intake: IV 250 450 Intake, Piggyback 100 Output: Urine 400 Urine, Voided 400 - Physical Exam Head: Positive for: Atraumatic, Normocephalic Pupils: Positive for: PERRL Extroacular Muscles: Positive for: EOMI Conjunctiva: Positive for: Normal. Negative for: Injected, Icteric Mouth: Positive for: Moist Mucous Membranes Nose (Internal): Positive for: Normal Inspection Neck: Positive for: Normal Range of Motion, MIDLINE TENDERNESS, Other (tracheostomy site clean intact, no oozing) Respiratory/Chest: Positive for: Clear to Auscultation, Good Air Exchange, Decreased Breath Sounds. Negative for: Respiratory Distress, Accessory Muscle Use, Wheezes Cardiovascular: Positive for: Regular Rate and Rhythm, Normal S1, S2, Peripheal Pulses Present. Negative for: Murmurs, Irregular Rhythm Abdomen: Positive for: Normal Bowel Sounds. Negative for: Tenderness, Distention Upper Extremity: Positive for: Normal Inspection. Negative for: Cyanosis, Edema Lower Extremity: Positive for: Normal Inspection. Negative for: Edema, CALF TENDERNESS Psychiatric: Positive for: Alert, Oriented x 3 - Medications Active Medications: Active Medications Generic Name Dose Route Start Last Admin Trade Name Freq PRN Reason Stop Dose Admin Enoxaparin Sodium 40 mg 10/20/18 09:00 Lovenox SC DAILY ANITA Protocol Lactated Ringer's 1,000 mls @ 100 mls/hr 10/19/18 20:00 10/20/18 06:32 Lactated Ringer's IV 100 mls/hr .Q10H ANITA Administration Cefazolin Sodium 1 gm/ Sodium 100 mls @ 100 mls/hr 10/20/18 09:00 Chloride IVPB 10/20/18 09:59 ONCE ONE Protocol Morphine Sulfate 4 mg 10/19/18 23:59 10/20/18 00:07 Morphine IVP 4 mg Q6 PRN Administration Pain, severe (8-10) Morphine Sulfate 2 mg 10/20/18 00:00 Morphine IVP Q6 PRN Pain, moderate (4-7) - Patient Studies Lab Studies: Lab Studies 10/19/18 10/19/18 10/19/18 Range/Units 12:54 10:55 10:55 WBC (4.8-10.8) K/uL RBC (4.40-5.90) Mil/uL Hgb (12.0-18.0) g/dL Hct (35.0-51.0) % MCV (80.0-94.0) fl MCH (27.0-31.0) pg MCHC (33.0-37.0) g/dL RDW (11.5-14.5) % Plt Count (130-400) K/uL MPV (7.2-11.7) fl Neut % (Auto) (50.0-75.0) % Lymph % (Auto) (20.0-40.0) % [place] % (Auto) (0.0-10.0) % Eos % (Auto) (0.0-4.0) % Baso % (Auto) (0.0-2.0) % Neut # (Auto) (1.8-7.0) K/uL Lymph # (Auto) (1.0-4.3) K/uL [place] # (Auto) (0.0-0.8) K/uL Eos # (Auto) (0.0-0.7) K/uL Baso # (Auto) (0.0-0.2) K/uL PT 12.6 (9.8-13.1) Seconds INR 1.1 APTT 33.3 (25.6-37.1) Seconds Sodium 137 (132-148) mmol/l Potassium 4.1 (3.6-5.0) MMOL/L Chloride 102 (98-107) mmol/L Carbon Dioxide 25 (22-30) mmol/L Anion Gap 14 (10-20) BUN 12 (9-20) mg/dl Creatinine 0.7 L (0.8-1.5) mg/dl Est GFR ( Amer) > 60 Est GFR (Non-Af Amer) > 60 Random Glucose 104 (75-110) mg/dL Calcium 8.4 (8.4-10.2) mg/dL Total Bilirubin 0.4 (0.2-1.3) mg/dl AST 27 (17-59) U/L ALT 33 (21-72) U/L Alkaline Phosphatase 149 H (38-126) U/L NT-Pro-B Natriuret Pep 30.1 (0-450) pg/ml Total Protein 7.4 (6.3-8.2) G/DL Albumin 4.3 (3.5-5.0) g/dL Globulin 3.1 (2.2-3.9) gm/dL Albumin/Globulin Ratio 1.4 (1.0-2.1) Urine Color Yellow (YELLOW) Urine Clarity Clear (Clear) Urine pH 6.0 (5.0-8.0) Ur Specific [place] 1.015 (1.003-1.030) Urine Protein Negative (NEGATIVE) mg/dL Urine Glucose (UA) Neg (NEGATIVE) mg/dL Urine Ketones Negative (NEGATIVE) mg/dL Urine Blood Negative (NEGATIVE) Urine Nitrate Negative (NEGATIVE) Urine Bilirubin Negative (NEGATIVE) Urine Urobilinogen 0.2-1.0 (0.2-1.0) mg/dL Ur Leukocyte Esterase Neg (Negative) Litzy/uL Urine RBC (Auto) 3 (0-3) /hpf Urine Microscopic WBC < 1 (0-5) /hpf 10/19/18 Range/Units 10:55 WBC 5.8 (4.8-10.8) K/uL RBC 4.92 (4.40-5.90) Mil/uL Hgb 13.9 (12.0-18.0) g/dL Hct 41.3 (35.0-51.0) % MCV 83.9 (80.0-94.0) fl MCH 28.2 (27.0-31.0) pg MCHC 33.6 (33.0-37.0) g/dL RDW 13.9 (11.5-14.5) % Plt Count 371 (130-400) K/uL MPV 8.0 (7.2-11.7) fl Neut % (Auto) 66.4 (50.0-75.0) % Lymph % (Auto) 24.1 (20.0-40.0) % [place] % (Auto) 8.6 (0.0-10.0) % Eos % (Auto) 0.4 (0.0-4.0) % Baso % (Auto) 0.5 (0.0-2.0) % Neut # (Auto) 3.8 (1.8-7.0) K/uL Lymph # (Auto) 1.4 (1.0-4.3) K/uL [place] # (Auto) 0.5 (0.0-0.8) K/uL Eos # (Auto) 0.0 (0.0-0.7) K/uL Baso # (Auto) 0.0 (0.0-0.2) K/uL PT (9.8-13.1) Seconds INR APTT (25.6-37.1) Seconds Sodium (132-148) mmol/l Potassium (3.6-5.0) MMOL/L Chloride (98-107) mmol/L Carbon Dioxide (22-30) mmol/L Anion Gap (10-20) BUN (9-20) mg/dl Creatinine (0.8-1.5) mg/dl Est GFR ( Amer) Est GFR (Non-Af Amer) Random Glucose (75-110) mg/dL Calcium (8.4-10.2) mg/dL Total Bilirubin (0.2-1.3) mg/dl AST (17-59) U/L ALT (21-72) U/L Alkaline Phosphatase (38-126) U/L NT-Pro-B Natriuret Pep (0-450) pg/ml Total Protein (6.3-8.2) G/DL Albumin (3.5-5.0) g/dL Globulin (2.2-3.9) gm/dL Albumin/Globulin Ratio (1.0-2.1) Urine Color (YELLOW) Urine Clarity (Clear) Urine pH (5.0-8.0) Ur Specific [place] (1.003-1.030) Urine Protein (NEGATIVE) mg/dL Urine Glucose (UA) (NEGATIVE) mg/dL Urine Ketones (NEGATIVE) mg/dL Urine Blood (NEGATIVE) Urine Nitrate (NEGATIVE) Urine Bilirubin (NEGATIVE) Urine Urobilinogen (0.2-1.0) mg/dL Ur Leukocyte Esterase (Negative) Litzy/uL Urine RBC (Auto) (0-3) /hpf Urine Microscopic WBC (0-5) /hpf Laboratory Results - last 24 hr 10/19/18 10/19/18 10/19/18 10:55 10:55 10:55 WBC 5.8 RBC 4.92 Hgb 13.9 Hct 41.3 MCV 83.9 MCH 28.2 MCHC 33.6 RDW 13.9 Plt Count 371 MPV 8.0 Neut % (Auto) 66.4 Lymph % (Auto) 24.1 [place] % (Auto) 8.6 Eos % (Auto) 0.4 Baso % (Auto) 0.5 Neut # (Auto) 3.8 Lymph # (Auto) 1.4 [place] # (Auto) 0.5 Eos # (Auto) 0.0 Baso # (Auto) 0.0 PT 12.6 INR 1.1 APTT 33.3 Sodium 137 Potassium 4.1 Chloride 102 Carbon Dioxide 25 Anion Gap 14 BUN 12 Creatinine 0.7 L Est GFR ( Amer) > 60 Est GFR (Non-Af Amer) > 60 Random Glucose 104 Calcium 8.4 Total Bilirubin 0.4 AST 27 ALT 33 Alkaline Phosphatase 149 H NT-Pro-B Natriuret Pep 30.1 Total Protein 7.4 Albumin 4.3 Globulin 3.1 Albumin/Globulin Ratio 1.4 Urine Color Urine Clarity Urine pH Ur Specific [place] Urine Protein Urine Glucose (UA) Urine Ketones Urine Blood Urine Nitrate Urine Bilirubin Urine Urobilinogen Ur Leukocyte Esterase Urine RBC (Auto) Urine Microscopic WBC 10/19/18 12:54 WBC RBC Hgb Hct MCV MCH MCHC RDW Plt Count MPV Neut % (Auto) Lymph % (Auto) [place] % (Auto) Eos % (Auto) Baso % (Auto) Neut # (Auto) Lymph # (Auto) [place] # (Auto) Eos # (Auto) Baso # (Auto) PT INR APTT Sodium Potassium Chloride Carbon Dioxide Anion Gap BUN Creatinine Est GFR ( Amer) Est GFR (Non-Af Amer) Random Glucose Calcium Total Bilirubin AST ALT Alkaline Phosphatase NT-Pro-B Natriuret Pep Total Protein Albumin Globulin Albumin/Globulin Ratio Urine Color Yellow Urine Clarity Clear Urine pH 6.0 Ur Specific [place] 1.015 Urine Protein Negative Urine Glucose (UA) Neg Urine Ketones Negative Urine Blood Negative Urine Nitrate Negative Urine Bilirubin Negative Urine Urobilinogen 0.2-1.0 Ur Leukocyte Esterase Neg Urine RBC (Auto) 3 Urine Microscopic WBC < 1 Radiology Impressions: Radiology Impressions Chest X-Ray 10/19/18 10:13 IMPRESSION: No active disease. Chest CT 10/19/18 10:14 IMPRESSION: Right middle lobe infiltrate/atelectasis. Diffuse and mild lower airway disease. Soft Tissue Neck CT 10/19/18 10:14 IMPRESSION: Asymmetric soft tissue thickening along the right lateral wall of the infraglottic trachea associated with some sclerotic curvilinear calcification along the right lateral border of this soft tissue density. Direct visualization is advised for further evaluation. No other acute findings. EKG/Cardiology Studies: Cardiology / EKG Studies 10/19/18 10:13 EKG [ELECTROCARDIOGRAM] Stat Comment: Mode Of Transportation: PORTABLE Reason For Exam: SOB Review of Systems - Constitutional Constitutional: absent: Fever, Chills, Sweats, Weakness, Malaise - Cardiovascular Cardiovascular: UNREMARKABLE - Respiratory Respiratory: Dyspnea, Dyspnea on Exertion. absent: Cough, Hemoptysis, Wheezing - Gastrointestinal Gastrointestinal: UNREMARKABLE Critical Care Progress Note - Extremities/Vascular Does the Patient have a Central Venous Catheter?: No Does the Patient need a Central Venous Catheter?: No Does the Patient have a Abbasi Catheter?: No Does the Patient need a Abbasi Catheter?: No - Nutrition Nutrition: Nutrition Category Date Time Status NPO Diet [DIET] Diets 10/19/18 Breakfast Active Assessment/Plan (1) Tracheostomy in place Current Visit: Yes Status: Acute Priority: High (2) Neck mass Current Visit: Yes Status: Acute Priority: High (3) Right middle lobe pulmonary infiltrate Current Visit: Yes Status: Acute Priority: High
[2018-10-20 07:50] LABS: BLOOD UREA NITROGEN 11 mg/dl (9-20); CALCIUM 8.3 mg/dL (8.4-10.2); GFR NON-AFRICAN AMERICAN > 60
--- NOTE | 2018-10-20 08:12 | OP ---
PROCEDURE DATE: 10/19/2018 PREOPERATIVE DIAGNOSIS: Possible airway obstruction. POSTOPERATIVE DIAGNOSIS: Possible airway obstruction. PROCEDURE: Flexible laryngoscopy. SURGEON: Hardy Lainez MD SIGNIFICANT FINDINGS: Scarring of the supraglottis noted with upper airway compromise. DESCRIPTION OF PROCEDURE: The patient was placed in a seated position. The nose was decongested using Afrin. Flexible laryngoscope was inserted into the nasal cavity, passed to the nasopharynx, oropharynx, and hypopharynx. The pharyngeal taylor, base of tongue, vallecula, epiglottis, and AE folds were brought into view. Scarring was noted on the left AE fold and possible false cord. The true cords could not be well visualized since the air passage through the true cords were very small. The scope was removed. The patient tolerated the procedure well. The patient was offered a tracheostomy; however, he refused. It was explained to the patient that he has upper airway obstruction, which could be dangerous and life threatening; however, he still refused. At this point, I will contact Dr. Elma Ricardo to see if he can be seen as an outpatient in her office. Hardy Lainez MD
[2018-10-20] MEDS ORDERED: ceFAZolin 1 GM in Sodium Chloride 0.9% 100 ML IVPB ONE (09:00)
[2018-10-20] MEDS ORDERED: ceFAZolin 1 GM in Sodium Chloride 0.9% 100 ML IVPB SCH (09:00)
--- NOTE | 2018-10-20 09:41 | OP ---
PROCEDURE DATE: 10/19/2018 PREOPERATIVE DIAGNOSIS: Airway obstruction. POSTOPERATIVE DIAGNOSIS: Airway obstruction. PROCEDURE: trach. SURGEON: Hardy Lainez MD SIGNIFICANT FINDING: Thyroid isthmus noted. DESCRIPTION OF PROCEDURE: The patient was brought into room, placed in supine position. The patient was prepped and draped in the usual sterile manner. An area inferior to the cricoid was infused with lidocaine and epinephrine. An incision was made vertically going from the cricoid in the midline inferiorly for 2 cm. Dissection was done through the strap muscles, which was in the midline. The isthmus was transected. A 5 mm window was opened in the third tracheal ring anteriorly in the midline and a #6 cuff non-fenestrated trach tube was inserted. Position was checked using anesthesia machine. Stay sutures were placed. Trach strap was placed. The patient was then taken to the recovery room in a stable manner. Hardy Lainez MD
[2018-10-20] MEDS: Enoxaparin 40 mg Syringe SC SCH (12:17)
[2018-10-20] MEDS: Piperacillin/Tazobact 3.375 GM in Sodium Chloride 0.9% 100 ML IVPB SCH ×2 (19:05→22:00)
[2018-10-21] MEDS: Piperacillin/Tazobact 3.375 GM in Sodium Chloride 0.9% 100 ML IVPB SCH ×4 (03:16→21:15)
[2018-10-21] MEDS: Lactated Ringer's 1,000 ML IV SCH ×2 (03:22→21:15)
[2018-10-21 05:34] LABS: BASO % 0.2 % (0.0-2.0); HEMOGLOBIN 12.9 g/dL (12.0-18.0); LYMPH % 9.6 % (20.0-40.0); MEAN CELL VOLUME 85.3 fl (80.0-94.0); MEAN CORPUSCULAR HEMOGLOBIN 27.9 pg (27.0-31.0); MEAN CORPUSCULAR HGB CONC 32.7 g/dL (33.0-37.0); MEAN PLATELET VOLUME 8.1 fl (7.2-11.7); MONO # 0.9 K/uL (0.0-0.8); MONO % 8.8 % (0.0-10.0); NEUT # 8.1 K/uL (1.8-7.0); NEUT % 81.4 % (50.0-75.0); PLATELET COUNT 284 K/uL (130-400); RBC 4.61 Mil/uL (4.40-5.90); RED CELL DISTRIBUTION WIDTH 13.7 % (11.5-14.5); WHITE BLOOD COUNT 9.9 K/uL (4.8-10.8)
--- NOTE | 2018-10-21 08:08 | CP.PCM.PN ---
<Ravindra Gao - Last Filed: 10/21/18 14:10> Subjective - Date & Time of Evaluation Date of Evaluation: 10/21/18 Time of Evaluation: 07:00 - Subjective Subjective: Patient seen and examined at bedside. Patient have no acute distress. Patient have no complains. Objective - Vital Signs/Intake and Output Vital Signs (last 24 hours): Temp Pulse Resp BP Pulse Ox 98.4 F 77 18 102/63 100 10/21/18 07:59 10/21/18 07:59 10/21/18 07:59 10/21/18 07:59 10/21/18 07:59 Intake and Output: 10/21/18 10/21/18 06:59 18:59 Intake Total 1200 Output Total 800 Balance 400 - Medications Medications: Current Medications Enoxaparin Sodium (Lovenox) 40 mg SC DAILY ANITA; Protocol Last Admin: 10/20/18 12:17 Dose: 40 mg Lactated Ringer's (Lactated Ringer's) 1,000 mls @ 100 mls/hr IV .Q10H ANITA Last Admin: 10/21/18 03:22 Dose: 100 mls/hr Piperacillin Sod/Tazobactam (Sod 3.375 gm/ Sodium Chloride) 100 mls @ 100 mls/hr IVPB Q6 ANITA; Protocol Last Admin: 10/21/18 03:16 Dose: 100 mls/hr Morphine Sulfate (Morphine) 4 mg IVP Q6 PRN PRN Reason: Pain, severe (8-10) Last Admin: 10/20/18 00:07 Dose: 4 mg Morphine Sulfate (Morphine) 2 mg IVP Q6 PRN PRN Reason: Pain, moderate (4-7) Last Admin: 10/20/18 21:15 Dose: 2 mg - Labs Labs: 10/21/18 04:40 10/20/18 07:25 PT 12.6 Seconds (9.8-13.1) 10/19/18 10:55 INR 1.1 10/19/18 10:55 APTT 33.3 Seconds (25.6-37.1) 10/19/18 10:55 - Constitutional Appears: Well, Non-toxic, No Acute Distress - Head Exam Head Exam: ATRAUMATIC, NORMAL INSPECTION, NORMOCEPHALIC - Eye Exam Eye Exam: EOMI, Normal appearance, PERRL Pupil Exam: NORMAL ACCOMODATION, PERRL - ENT Exam ENT Exam: Mucous Membranes Moist, Normal Exam - Neck Exam Neck Exam: Full ROM, Normal Inspection Additional comments: Trach placed, patent - Respiratory Exam Respiratory Exam: Clear to Ausculation Bilateral, NORMAL BREATHING PATTERN - Cardiovascular Exam Cardiovascular Exam: REGULAR RHYTHM, +S1, +S2 - GI/Abdominal Exam GI & Abdominal Exam: Soft, Normal Bowel Sounds - Extremities Exam Extremities Exam: Full ROM, Normal Capillary Refill, Normal Inspection - Neurological Exam Neurological Exam: Alert, Awake, Oriented x3 - Psychiatric Exam Psychiatric exam: Normal Affect, Normal Mood - Skin Skin Exam: Normal Color, Warm Assessment and Plan - Assessment and Plan (Free Text) Assessment: 48 yo male with no pmh present with Chronic SOB and hoarseness with abnormal finding in CT scan of neck. Evaluated by ENT admited for Tracheotomy. S/P day 2. CT neck Asymmetric soft tissue thickening along the right lateral wall of the infraglottic trachea associated with some sclerotic curvilinear calcification along the right lateral border of this soft tissue density. Direct visualization is advised for further evaluation. No other acute findings. Asymmetric soft tissue thickening along the right lateral wall of the infraglottic trachea associated with some sclerotic curvilinear calcification along the right lateral border of this soft tissue density. Direct visualization is advised for further evaluation. No other acute findings. CT chest Right middle lobe infiltrate/atelectasis. 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 S/P tracheostomy Day 2 - Tracheostomy POD#2 In tele -Will transfer from tele to med/surg - O2 via trach collar - IV Fluids - Continue morphine for pain - S/P cefazolin - Observe for respiratory distress -Trach patent, breathing improved -F/U MRSA naris culture -Follow surgery recommendation. Diet Pending on speech swallow study NPO for now DVT Continue lovenox Upon discharge patient will be needing supplies for trach, need to follow up with social worker clinical <Susie Andrade - Last Filed: 10/21/18 14:55> Objective - Vital Signs/Intake and Output Vital Signs (last 24 hours): Temp Pulse Resp BP Pulse Ox 99.2 F 80 18 108/67 100 10/21/18 11:51 10/21/18 11:51 10/21/18 11:51 10/21/18 11:51 10/21/18 11:51 Intake and Output: 10/21/18 10/21/18 06:59 18:59 Intake Total 1200 850 Output Total 800 Balance 400 850 - Medications Medications: Current Medications Enoxaparin Sodium (Lovenox) 40 mg SC DAILY ANITA; Protocol Last Admin: 10/21/18 08:21 Dose: 40 mg Lactated Ringer's (Lactated Ringer's) 1,000 mls @ 100 mls/hr IV .Q10H ANITA Last Admin: 10/21/18 03:22 Dose: 100 mls/hr Piperacillin Sod/Tazobactam (Sod 3.375 gm/ Sodium Chloride) 100 mls @ 100 mls/hr IVPB Q6 ANTIA; Protocol Last Admin: 10/21/18 10:29 Dose: 100 mls/hr Morphine Sulfate (Morphine) 4 mg IVP Q6 PRN PRN Reason: Pain, severe (8-10) Last Admin: 10/20/18 00:07 Dose: 4 mg Morphine Sulfate (Morphine) 2 mg IVP Q6 PRN PRN Reason: Pain, moderate (4-7) Last Admin: 10/21/18 08:21 Dose: 2 mg - Labs Labs: 10/21/18 04:40 10/20/18 07:25 PT 12.6 Seconds (9.8-13.1) 10/19/18 10:55 INR 1.1 10/19/18 10:55 APTT 33.3 Seconds (25.6-37.1) 10/19/18 10:55 Attending/Attestation - Attestation I have personally seen and examined this patient.: Yes I have fully participated in the care of the patient.: Yes I have reviewed all pertinent clinical information, including history, physical exam and plan: Yes Notes (Text): 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 He is in contact with a specialist at another facility and is working on the possibility of transfer. He rec to keep pt in the hospital for now for Trach to heal for a few days . Ok to start feeding pt and may deflate Trach for feeding. - received IV Cefazolin x 3 doses periop - Pt had fever and sl WBC increase yesterday , empirically started IV Zosyn, will monitor , if no signs of infection, will d/c - NPO for now-Speech consulted for Swallow eval- plan for Modified Barium Swallow in am - IVF hydration -Pain mgt
[2018-10-21] MEDS: Enoxaparin 40 mg Syringe SC SCH (08:21)
[2018-10-21 08:48] LABS: LYMPHOCYTE 11 % (20-50); MONOCYTE 8 % (0-10); NEUTROPHIL 81 % (42-75); PLATELET ESTIMATE NORMAL (NORMAL); TOTAL CELLS COUNTED 100
[2018-10-21 08:49] LABS: ANISOCYTOSIS SLIGHT; LARGE PLATELETS PRESENT
[2018-10-21] MEDS ORDERED: Pneumococcal 23-Valent Vaccine IM ONE (12:59)
[2018-10-22] MEDS: Piperacillin/Tazobact 3.375 GM in Sodium Chloride 0.9% 100 ML IVPB SCH ×4 (03:01→21:03)
[2018-10-22 06:48] LABS: BASO % 0.1 % (0.0-2.0); EOS # 0.1 K/uL (0.0-0.7); HEMOGLOBIN 11.9 g/dL (12.0-18.0); MEAN CELL VOLUME 84.5 fl (80.0-94.0); MEAN CORPUSCULAR HEMOGLOBIN 28.3 pg (27.0-31.0); MEAN CORPUSCULAR HGB CONC 33.5 g/dL (33.0-37.0); MONO # 0.8 K/uL (0.0-0.8); MONO % 10.4 % (0.0-10.0); NEUT # 5.6 K/uL (1.8-7.0); NEUT % 75.5 % (50.0-75.0); RBC 4.21 Mil/uL (4.40-5.90); RED CELL DISTRIBUTION WIDTH 13.1 % (11.5-14.5); WHITE BLOOD COUNT 7.4 K/uL (4.8-10.8)
[2018-10-22 06:57] LABS: ALB/GLOB RATIO 1.2 (1.0-2.1); ALBUMIN 3.5 g/dL (3.5-5.0); ALT/SGPT 39 U/L (21-72); AST/SGOT 40 U/L (17-59); BLOOD UREA NITROGEN 15 mg/dl (9-20); CALCIUM 7.7 mg/dL (8.4-10.2); GFR NON-AFRICAN AMERICAN > 60
--- NOTE | 2018-10-22 08:28 | CP.PCM.PN ---
<Miguelangel PerezRavindra - Last Filed: 10/22/18 14:01> Subjective - Date & Time of Evaluation Date of Evaluation: 10/22/18 Time of Evaluation: 07:00 - Subjective Subjective: Patient is seen and examined at bedside today. No acute event. Patient transfered to Med/surg Objective - Vital Signs/Intake and Output Vital Signs (last 24 hours): Temp Pulse Resp BP Pulse Ox 98.3 F 78 18 106/66 100 10/22/18 08:20 10/22/18 08:20 10/22/18 08:20 10/22/18 08:20 10/22/18 08:20 Intake and Output: 10/22/18 10/22/18 06:59 18:59 Intake Total 800 Balance 800 - Medications Medications: Current Medications Enoxaparin Sodium (Lovenox) 40 mg SC DAILY [facility]; Protocol Last Admin: 10/21/18 08:21 Dose: 40 mg Lactated Ringer's (Lactated Ringer's) 1,000 mls @ 100 mls/hr IV .Q10H [facility] Last Admin: 10/21/18 21:15 Dose: 100 mls/hr Piperacillin Sod/Tazobactam (Sod 3.375 gm/ Sodium Chloride) 100 mls @ 100 mls/hr IVPB Q6 [facility]; Protocol Last Admin: 10/22/18 03:01 Dose: 100 mls/hr Morphine Sulfate (Morphine) 4 mg IVP Q6 PRN PRN Reason: Pain, severe (8-10) Last Admin: 10/20/18 00:07 Dose: 4 mg Morphine Sulfate (Morphine) 2 mg IVP Q6 PRN PRN Reason: Pain, moderate (4-7) Last Admin: 10/21/18 08:21 Dose: 2 mg - Labs Labs: 10/22/18 05:55 10/22/18 05:55 PT 12.6 Seconds (9.8-13.1) 10/19/18 10:55 INR 1.1 10/19/18 10:55 APTT 33.3 Seconds (25.6-37.1) 10/19/18 10:55 - Constitutional Appears: Well, Non-toxic, No Acute Distress - Head Exam Head Exam: ATRAUMATIC, NORMAL INSPECTION, NORMOCEPHALIC - Eye Exam Eye Exam: EOMI, Normal appearance, PERRL Pupil Exam: NORMAL ACCOMODATION, PERRL - ENT Exam Additional comments: trach patent - Neck Exam Neck Exam: Full ROM, Normal Inspection - Respiratory Exam Respiratory Exam: Clear to Ausculation Bilateral, NORMAL BREATHING PATTERN - Cardiovascular Exam Cardiovascular Exam: REGULAR RHYTHM, +S1, +S2 - GI/Abdominal Exam GI & Abdominal Exam: Soft, Normal Bowel Sounds - Extremities Exam Extremities Exam: Full ROM, Normal Capillary Refill, Normal Inspection - Back Exam Back Exam: NORMAL INSPECTION - Neurological Exam Neurological Exam: Alert, Awake, Oriented x3 - Psychiatric Exam Psychiatric exam: Normal Affect, Normal Mood - Skin Skin Exam: Dry, Intact, Normal Color, Warm Assessment and Plan - Assessment and Plan (Free Text) Assessment: 48 yo male with no pmh present with Chronic SOB and hoarseness with abnormal finding in CT scan of neck. Evaluated by ENT admited for Tracheotomy. S/P day 3. 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 S/P tracheostomy Day 2 - Tracheostomy POD#3 In tele - O2 via trach collar - IV Fluids - Continue morphine for pain - S/P cefazolin - Observe for respiratory distress -Trach patent, breathing improved -F/U MRSA naris culture -Patient pending transfer to [facility] for further management Diet passed Swallow test Regular diet DVT Continue lovenox Imaging CT neck Asymmetric soft tissue thickening along the right lateral wall of the infraglottic trachea associated with some sclerotic curvilinear calcification along the right lateral border of this soft tissue density. Direct visualization is advised for further evaluation. No other acute findings. Asymmetric soft tissue thickening along the right lateral wall of the infraglottic trachea associated with some sclerotic curvilinear calcification along the right lateral border of this soft tissue density. Direct visualization is advised for further evaluation. No other acute findings. CT chest Right middle lobe infiltrate/atelectasis. Diffuse and mild lower airway disease r <Susie Andrade - Last Filed: 10/22/18 14:50> Objective - Vital Signs/Intake and Output Vital Signs (last 24 hours): Temp Pulse Resp BP Pulse Ox 98.3 F 78 18 106/66 100 10/22/18 08:20 10/22/18 08:20 10/22/18 08:20 10/22/18 08:20 10/22/18 08:20 Intake and Output: 10/22/18 10/22/18 06:59 18:59 Intake Total 800 Balance 800 - Medications Medications: Current Medications Enoxaparin Sodium (Lovenox) 40 mg SC DAILY [facility]; Protocol Last Admin: 10/21/18 08:21 Dose: 40 mg Lactated Ringer's (Lactated Ringer's) 1,000 mls @ 100 mls/hr IV .Q10H [facility] Last Admin: 10/22/18 11:27 Dose: Not Given Piperacillin Sod/Tazobactam (Sod 3.375 gm/ Sodium Chloride) 100 mls @ 100 mls/hr IVPB Q6 [facility]; Protocol Last Admin: 10/22/18 11:36 Dose: 100 mls/hr Morphine Sulfate (Morphine) 4 mg IVP Q6 PRN PRN Reason: Pain, severe (8-10) Last Admin: 10/20/18 00:07 Dose: 4 mg Morphine Sulfate (Morphine) 2 mg IVP Q6 PRN PRN Reason: Pain, moderate (4-7) Last Admin: 10/21/18 08:21 Dose: 2 mg - Labs Labs: 10/22/18 05:55 10/22/18 05:55 PT 12.6 Seconds (9.8-13.1) 10/19/18 10:55 INR 1.1 10/19/18 10:55 APTT 33.3 Seconds (25.6-37.1) 10/19/18 10:55 Attending/Attestation - Attestation I have personally seen and examined this patient.: Yes I have fully participated in the care of the patient.: Yes I have reviewed all pertinent clinical information, including history, physical exam and plan: Yes Notes (Text): 10/22/18 14:42 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 He contacted Dr Elma Pemberton from [facility] , who accepted pt for transfer. Awaiting bed at [facility]. - received IV Cefazolin x 3 doses periop - Pt had fever and sl WBC increase yesterday , empirically started IV Zosyn, will monitor , if no signs of infection, will d/c - Modified Barium Swallow done by Speech - no aspiration- diet resumed
[2018-10-22] MEDS ORDERED: Barium Sulfate Susp 0.1% w/v, 0.1% w/w 450 mL Bottle PO ONE (09:08)
[2018-10-22] MEDS: Lactated Ringer's 1,000 ML IV SCH (11:27)
--- NOTE | 2018-10-22 14:40 | RAD ---
Date of service: 10/22/2018 PROCEDURE: Modified barium video swallow HISTORY: aspiration COMPARISON: Not available TECHNIQUE: A modified barium video swallow was performed in conjunction with a member of the speech therapy department. Swallowing of food/barium mixtures of varying viscosity was observed fluoroscopically. Total time of fluoroscopy was 55.7 sec. Cumulative dose was 2.36 mGy. FINDINGS: There is no evidence of aspiration or laryngeal penetration during this examination. IMPRESSION: No aspiration observed. Please see full report from speech therapy for evaluation of swallowing mechanism.
[2018-10-22 23:35] VITALS: O2SAT 100
[2018-10-23] MEDS: Lactated Ringer's 1,000 ML IV SCH ×2 (02:16→03:51)
[2018-10-23] MEDS: Piperacillin/Tazobact 3.375 GM in Sodium Chloride 0.9% 100 ML IVPB SCH ×2 (03:53→09:18)
[2018-10-23 08:15] VITALS: RESP 19; TEMP 98.2
[2018-10-23 15:50] VITALS: BP 96/58; PULSE 68
--- NOTE | 2018-10-23 16:10 | CP.PCM.DIS ---
<Ravindra Gao - Last Filed: 10/23/18 16:11> Provider - Provider Date of Admission: 10/19/18 20:16 Attending physician: Klever Grey MD Consults: 10/19/18 14:27 Otolaryngology Consult Stat Consulting Provider: Hardy Lainez Consulting Physician: Hardy Lainez Reason for Consult: Infraglottic mass Time Spent in preparation of Discharge (in minutes): 20 Hospital Course - Lab Results Lab Results: Micro Results 10/20/18 21:07 Nose MRSA Culture (Admit) - Final MRSA NOT DETECTED 10/19/18 09:25 Naris MRSA Culture (Admit) - Final MRSA NOT DETECTED Most Recent Lab Values WBC 7.4 K/uL (4.8-10.8) 10/22/18 05:55 RBC 4.21 Mil/uL (4.40-5.90) L 10/22/18 05:55 Hgb 11.9 g/dL (12.0-18.0) L 10/22/18 05:55 Hct 35.6 % (35.0-51.0) 10/22/18 05:55 MCV 84.5 fl (80.0-94.0) 10/22/18 05:55 MCH 28.3 pg (27.0-31.0) 10/22/18 05:55 MCHC 33.5 g/dL (33.0-37.0) 10/22/18 05:55 RDW 13.1 % (11.5-14.5) 10/22/18 05:55 Plt Count 265 K/uL (130-400) 10/22/18 05:55 MPV 8.0 fl (7.2-11.7) 10/22/18 05:55 Neut % (Auto) 75.5 % (50.0-75.0) H 10/22/18 05:55 Lymph % (Auto) 13.0 % (20.0-40.0) L 10/22/18 05:55 [place] % (Auto) 10.4 % (0.0-10.0) H 10/22/18 05:55 Eos % (Auto) 1.0 % (0.0-4.0) 10/22/18 05:55 Baso % (Auto) 0.1 % (0.0-2.0) 10/22/18 05:55 Neut # (Auto) 5.6 K/uL (1.8-7.0) 10/22/18 05:55 Lymph # (Auto) 1.0 K/uL (1.0-4.3) 10/22/18 05:55 [place] # (Auto) 0.8 K/uL (0.0-0.8) 10/22/18 05:55 Eos # (Auto) 0.1 K/uL (0.0-0.7) 10/22/18 05:55 Baso # (Auto) 0.0 K/uL (0.0-0.2) 10/22/18 05:55 Neutrophils % (Manual) 81 % (42-75) H 10/21/18 04:40 Lymphocytes % (Manual) 11 % (20-50) L 10/21/18 04:40 Monocytes % (Manual) 8 % (0-10) 10/21/18 04:40 Platelet Estimate Normal (NORMAL) 10/21/18 04:40 Large Platelets Present 10/21/18 04:40 Anisocytosis (manual) Slight 10/21/18 04:40 PT 12.6 Seconds (9.8-13.1) 10/19/18 10:55 INR 1.1 10/19/18 10:55 APTT 33.3 Seconds (25.6-37.1) 10/19/18 10:55 Sodium 136 mmol/l (132-148) 10/22/18 05:55 Potassium 3.6 MMOL/L (3.6-5.0) 10/22/18 05:55 Chloride 102 mmol/L (98-107) 10/22/18 05:55 Carbon Dioxide 23 mmol/L (22-30) 10/22/18 05:55 Anion Gap 15 (10-20) 10/22/18 05:55 BUN 15 mg/dl (9-20) 10/22/18 05:55 Creatinine 0.9 mg/dl (0.8-1.5) 10/22/18 05:55 Est GFR ( Amer) > 60 10/22/18 05:55 Est GFR (Non-Af Amer) > 60 10/22/18 05:55 Random Glucose 86 mg/dL (75-110) 10/22/18 05:55 Calcium 7.7 mg/dL (8.4-10.2) L 10/22/18 05:55 Total Bilirubin 1.0 mg/dl (0.2-1.3) 10/22/18 05:55 AST 40 U/L (17-59) 10/22/18 05:55 ALT 39 U/L (21-72) 10/22/18 05:55 Alkaline Phosphatase 107 U/L (38-126) 10/22/18 05:55 NT-Pro-B Natriuret Pep 30.1 pg/ml (0-450) 10/19/18 10:55 Total Protein 6.5 G/DL (6.3-8.2) 10/22/18 05:55 Albumin 3.5 g/dL (3.5-5.0) 10/22/18 05:55 Globulin 2.9 gm/dL (2.2-3.9) 10/22/18 05:55 Albumin/Globulin Ratio 1.2 (1.0-2.1) 10/22/18 05:55 Urine Color Yellow (YELLOW) 10/19/18 12:54 Urine Clarity Clear (Clear) 10/19/18 12:54 Urine pH 6.0 (5.0-8.0) 10/19/18 12:54 Ur Specific [place] 1.015 (1.003-1.030) 10/19/18 12:54 Urine Protein Negative mg/dL (NEGATIVE) 10/19/18 12:54 Urine Glucose (UA) Neg mg/dL (NEGATIVE) 10/19/18 12:54 Urine Ketones Negative mg/dL (NEGATIVE) 10/19/18 12:54 Urine Blood Negative (NEGATIVE) 10/19/18 12:54 Urine Nitrate Negative (NEGATIVE) 10/19/18 12:54 Urine Bilirubin Negative (NEGATIVE) 10/19/18 12:54 Urine Urobilinogen 0.2-1.0 mg/dL (0.2-1.0) 10/19/18 12:54 Ur Leukocyte Esterase Neg Litzy/uL (Negative) 10/19/18 12:54 Urine RBC (Auto) 3 /hpf (0-3) 10/19/18 12:54 Urine Microscopic WBC < 1 /hpf (0-5) 10/19/18 12:54 - Hospital Course Hospital Course: 48 yo male with no pmh present with Chronic SOB and hoarseness with abnormal finding in CT scan of neck. Evaluated by ENT admited for Tracheotomy. Patient had tracheotomy on 10/19/[address] Ferguson. there was no complication post operation. patient breathing improved. Patient was able to pass swallow test and tolerated regular diet. Due to mass finding in the CT scan, Patient will need further assessment and treatment by ENT. Patient will be transfered to [facility] for further management, with possible further surgery. Question and concern addressed, patient understand. Will transfer patient ot [facility] Discharge Exam - Head Exam Head Exam: ATRAUMATIC, NORMAL INSPECTION, NORMOCEPHALIC - Eye Exam Eye Exam: EOMI, Normal appearance, PERRL Pupil Exam: NORMAL ACCOMODATION, PERRL - Neck Exam Additional comments: trach noted, patent - Respiratory Exam Respiratory Exam: Clear to PA & Lateral, NORMAL BREATHING PATTERN, UNREMARKABLE - Cardiovascular Exam Cardiovascular Exam: REGULAR RHYTHM, +S1, +S2 - GI/Abdominal Exam GI & Abdominal Exam: Normal Bowel Sounds, Unremarkable - Neurological Exam Neurological exam: Alert, CN II-XII Intact, Normal Gait, Oriented x3, Reflexes Normal - Psychiatric Exam Psychiatric exam: Normal Affect, Normal Mood - Skin Skin Exam: Dry, Intact, Normal Color, Warm Discharge Plan - Follow Up Plan Condition: STABLE Disposition: Trans to Other Acute Care Hosp Instructions: How to Care for a Tracheostomy, Tracheotomy (DC) Additional Instructions: D/c patient when [facility] Bed [facility] available. [facility] visiting nurse [phone] Referrals: [facility] [Outside] Hardy Lainez MD [Staff Provider] - <Susie Andrade - Last Filed: 10/23/18 18:01> Provider - Provider Date of Admission: 10/19/18 20:16 Attending physician: Klever Grey MD Consults: 10/19/18 14:27 Otolaryngology Consult Stat Consulting Provider: Hardy Lainez Consulting Physician: Hardy Lainez Reason for Consult: Infraglottic mass Hospital Course - Lab Results Lab Results: Micro Results 10/20/18 21:07 Nose MRSA Culture (Admit) - Final MRSA NOT DETECTED 10/19/18 09:25 Naris MRSA Culture (Admit) - Final MRSA NOT DETECTED Most Recent Lab Values WBC 7.4 K/uL (4.8-10.8) 10/22/18 05:55 RBC 4.21 Mil/uL (4.40-5.90) L 10/22/18 05:55 Hgb 11.9 g/dL (12.0-18.0) L 10/22/18 05:55 Hct 35.6 % (35.0-51.0) 10/22/18 05:55 MCV 84.5 fl (80.0-94.0) 10/22/18 05:55 MCH 28.3 pg (27.0-31.0) 10/22/18 05:55 MCHC 33.5 g/dL (33.0-37.0) 10/22/18 05:55 RDW 13.1 % (11.5-14.5) 10/22/18 05:55 Plt Count 265 K/uL (130-400) 10/22/18 05:55 MPV 8.0 fl (7.2-11.7) 10/22/18 05:55 Neut % (Auto) 75.5 % (50.0-75.0) H 10/22/18 05:55 Lymph % (Auto) 13.0 % (20.0-40.0) L 10/22/18 05:55 [place] % (Auto) 10.4 % (0.0-10.0) H 10/22/18 05:55 Eos % (Auto) 1.0 % (0.0-4.0) 10/22/18 05:55 Baso % (Auto) 0.1 % (0.0-2.0) 10/22/18 05:55 Neut # (Auto) 5.6 K/uL (1.8-7.0) 10/22/18 05:55 Lymph # (Auto) 1.0 K/uL (1.0-4.3) 10/22/18 05:55 [place] # (Auto) 0.8 K/uL (0.0-0.8) 10/22/18 05:55 Eos # (Auto) 0.1 K/uL (0.0-0.7) 10/22/18 05:55 Baso # (Auto) 0.0 K/uL (0.0-0.2) 10/22/18 05:55 Neutrophils % (Manual) 81 % (42-75) H 10/21/18 04:40 Lymphocytes % (Manual) 11 % (20-50) L 10/21/18 04:40 Monocytes % (Manual) 8 % (0-10) 10/21/18 04:40 Platelet Estimate Normal (NORMAL) 10/21/18 04:40 Large Platelets Present 10/21/18 04:40 Anisocytosis (manual) Slight 10/21/18 04:40 PT 12.6 Seconds (9.8-13.1) 10/19/18 10:55 INR 1.1 10/19/18 10:55 APTT 33.3 Seconds (25.6-37.1) 10/19/18 10:55 Sodium 136 mmol/l (132-148) 10/22/18 05:55 Potassium 3.6 MMOL/L (3.6-5.0) 10/22/18 05:55 Chloride 102 mmol/L (98-107) 10/22/18 05:55 Carbon Dioxide 23 mmol/L (22-30) 10/22/18 05:55 Anion Gap 15 (10-20) 10/22/18 05:55 BUN 15 mg/dl (9-20) 10/22/18 05:55 Creatinine 0.9 mg/dl (0.8-1.5) 10/22/18 05:55 Est GFR ( Amer) > 60 10/22/18 05:55 Est GFR (Non-Af Amer) > 60 10/22/18 05:55 Random Glucose 86 mg/dL (75-110) 10/22/18 05:55 Calcium 7.7 mg/dL (8.4-10.2) L 10/22/18 05:55 Total Bilirubin 1.0 mg/dl (0.2-1.3) 10/22/18 05:55 AST 40 U/L (17-59) 10/22/18 05:55 ALT 39 U/L (21-72) 10/22/18 05:55 Alkaline Phosphatase 107 U/L (38-126) 10/22/18 05:55 NT-Pro-B Natriuret Pep 30.1 pg/ml (0-450) 10/19/18 10:55 Total Protein 6.5 G/DL (6.3-8.2) 10/22/18 05:55 Albumin 3.5 g/dL (3.5-5.0) 10/22/18 05:55 Globulin 2.9 gm/dL (2.2-3.9) 10/22/18 05:55 Albumin/Globulin Ratio 1.2 (1.0-2.1) 10/22/18 05:55 Urine Color Yellow (YELLOW) 10/19/18 12:54 Urine Clarity Clear (Clear) 10/19/18 12:54 Urine pH 6.0 (5.0-8.0) 10/19/18 12:54 Ur Specific [place] 1.015 (1.003-1.030) 10/19/18 12:54 Urine Protein Negative mg/dL (NEGATIVE) 10/19/18 12:54 Urine Glucose (UA) Neg mg/dL (NEGATIVE) 10/19/18 12:54 Urine Ketones Negative mg/dL (NEGATIVE) 10/19/18 12:54 Urine Blood Negative (NEGATIVE) 10/19/18 12:54 Urine Nitrate Negative (NEGATIVE) 10/19/18 12:54 Urine Bilirubin Negative (NEGATIVE) 10/19/18 12:54 Urine Urobilinogen 0.2-1.0 mg/dL (0.2-1.0) 10/19/18 12:54 Ur Leukocyte Esterase Neg Litzy/uL (Negative) 10/19/18 12:54 Urine RBC (Auto) 3 /hpf (0-3) 10/19/18 12:54 Urine Microscopic WBC < 1 /hpf (0-5) 10/19/18 12:54 Attending/Attestation - Attestation I have personally seen and examined this patient.: Yes I have fully participated in the care of the patient.: Yes I have reviewed all pertinent clinical information, including history, physical exam and plan: Yes Notes (Text): Diagnosis: 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 He contacted Dr Elma Pemberton from [facility] , who accepted pt for transfer. - received IV Cefazolin x 3 doses periop - Pt had fever and sl WBC , empirically started IV Zosyn, will d/c as no signs of infection - Modified Barium Swallow done by Speech - no aspiration- diet resumed d/c pt to [facility] for higher level of care by a Laryngeal specialist
== END 2018-10-23 15:54 | disposition short-term general hospital (02) | DRG 121 ==
LOC: H.ER 09:22 → UNDOADMIN 14:26 → H.ERHOLD 14:26 → H.ICU/CCU 21:30 → H.TEL 10-20 18:14 → H.MEDSURG1 10-21 14:39
PROC: 0CJS8ZZ Inspection of Larynx, Via Natural or Artificial Opening Endoscopic (ICD-10-PCS; 2018-10-19)
PROC: 0B110F4 Bypass Trachea to Cutaneous with Tracheostomy Device, Open Approach (ICD-10-PCS; principal; 2018-10-19 20:30)
DX: J98.8 Other specified respiratory disorders (principal); R22.1 Localized swelling, mass and lump, neck; J98.11 Atelectasis; R49.0 Dysphonia; Z87.891 Personal history of nicotine dependence